=== PATIENT | female | born 1955 | race Caucasian/White ===

== ENCOUNTER 2022-04-25 07:41 | Day surgery (SDC) | payer MEDICARE ==
[~2022-04-25] VITALS: Ht 170.2 cm; Wt 73.8 kg
[~2022-04-25 07:41] MED LIST: AMLO10 PO; CATAPRES-TTS 11 EAC1 TOP; CATAPRES0.1 MG PO; CELE100 PO; CLON.1; ESOM20 PO; LOSARTAN POTAS100 M1 PO; LOSARTAN-HCTZ1 EACH PO
--- NOTE | 2022-04-25 16:44 | NUR ---
PT ARRIVED TO THE ROOM AT 1600. SHE IS DROWSY BUT AWAKE AND ORIENTED. PT REPORT FEELING DIZZY AT THIS TIME AND HR IS 51-55, AWAITING RETURN CALL FROM DR. IBRAHIM. PT'S TEMP IS 96.3, WILL OFFER WARM BLANKET, RESPIRATIONS 10-[address] IBRAHIM AND CONTINUE TO MONITOR.
--- NOTE | 2022-04-25 17:16 | NUR ---
DR. IBRAHIM NOTIFIED OF DECREASED HR, LOW TEMP AND LOW RESP RATE. TELE MONITOR PLACED. PT REPORTS DIZZINESS IS RESOLVING. WILL CONTINUE TO MONITOR.
--- NOTE | 2022-04-25 18:57 | NUR ---
SHIFT SUMMARY PT IS POD#0 FROM [facility] WITH DR. IBRAHIM. PT ARRIVED TO THE ROOM AT APPROXIMATELY 1600. PAIN MANAGED WITH PO PAIN MEDICATION AND TORADOL. PT WAS INITIALLY DIZZY WITH A LOW HR; HR REMAINS LOW BUT PT REPORTS DIZZINESS IS RESOLVING. PT CONTINUES TO HAVE BLE WEAKNESS AND DECREASED SENSATION R/T SPINAL ANESTHESIA; MOVEMENT AND SENSATION ARE IMPROVING. WILL MONITOR UNTIL REPORT TO NOC RN.
--- NOTE | 2022-04-26 04:07 | NUR ---
SHIFT SUMMARY POD1 L [facility]MEN[place] WITH DERMABOND DRESSING, REMAIN CDI NO DRAINAGE NOTED. WB JOCELYNN ON LLE. AMB IN BSC. VOIDING. PT REPORTS MODERATE PAIN, WORSE AFTER AMBULATING. PAIN MANAGED WITH TORADOL, TYLENOL AND OXYCODONE. TOLERATING PO INTAKE. DENIES N/V. DENIES NUMBNESS, TINGLING SENSATION AND DIZZINESS. VSS. PT HAD 1 EPISODE OF HR RUNNING ON 47-49 (RAZ) FOR ABOUT HALF AN HOUR PER TECHNICAL SERVICES REPRESENTATIVE. AOX4. CALL LIGHT WITHIN REACH. WILL CONTINUE TO MONITOR AND WILL PROVIDE REPORT TO ONCOMING NURSE.
[2022-04-26 04:32] LABS: BASOPHILS ABSOLUTE AUTO 0.02 K/mm3 (0.00-0.23); BASOPHILS PERCENT AUTO 0 % (0-2); EOSINOPHILS ABSOLUTE AUTO 0.01 K/mm3 (0.00-0.68); EOSINOPHILS PERCENT AUTO 0 % (0-6); Hematocrit 35.2 % (33.0-51.0); Hemoglobin 12.2 g/dL (11.5-16.0); IMMATURE GRAN ABSOLUTE AUTO 0.04 K/mm3 (0.00-0.10); IMMATURE GRAN PERCENT AUTO 0 % (0-1); LYMPHOCYTES PERCENT AUTO 7 % (21-46); MONOCYTES ABSOLUTE AUTO 0.83 K/mm3 (0.16-1.47); MONOCYTES PERCENT AUTO 8 % (4-13); Mean Corpuscular HGB 30.2 pg (26.0-34.0); Mean Corpuscular HGB Conc 34.7 g/dL (31.5-36.5); Mean Corpuscular Volume 87 fL (80-100); Mean Platelet Volume 11.1 fL (9.1-12.4); NEUTROPHILS ABSOLUTE AUTO 9.14 K/mm3 (1.96-9.15); NEUTROPHILS PERCENT AUTO 84 % (41-73); Platelet Count 230 K/mm3 (150-400); RDW Coefficient Variation 11.3 % (11.7-14.2); RDW Standard Deviation 36.3 fL (35.1-46.3); Red Blood Cell Count 4.04 M/mm3 (3.80-5.20); White Blood Cell Count 10.84 K/mm3 (4.00-11.30)
[2022-04-26 04:58] LABS: Bun/Creatinine Ratio 20.2 (12.0-20.0); Calcium, Blood 9.3 mg/dL (8.5-10.1); Creatinine, Blood 0.64 mg/dL (0.40-1.00); Magnesium, Blood 1.9 mg/dL (1.6-2.4); Potassium, Blood 3.6 mmol/L (3.5-5.5)
--- NOTE | 2022-04-26 08:50 | NUR ---
PATIENT REPORTED NAUSEA WHILE WORKING WITH PHYSICAL THERPAY. MEDICATED WITH ZOFRAN PER EMAR. THERAPY PAUSED AND WILL FINISH THIS AFTERNOON.
[2022-04-26] MEDS ORDERED: ACET500 PO (09:17)
[2022-04-26] MEDS ORDERED: OXYC5 PO (09:18)
--- NOTE | 2022-04-26 14:00 | NUR ---
DISCHARGE PT HAS CLEARED THERAPY. PAIN WELL CONTROLLED PER EMAR. PRENIO DRESSING IN PLACE, C/D/I. EATING, DRINKING, & VOIDING WELL. DISCUSSED DISCHARGE INSTRUCTIONS WITH PATIENT. AQUACEL DRESSINGS, DISCHARGE INSTRUCTIONS, & POLAR PACK SENT WITH PATIENT. ESCORTED OUT VIA W/C.
== END 2022-04-26 14:03 | disposition home or self-care (01) ==
LOC: ORSCMMR 07:41 → ORD 10:30 → SURS 16:00 → ORSCMMR 04-26 14:03
PROVIDERS: Orthopaedic Surgery
PROC: 0SRB0JA Replacement of Left Hip Joint with Synthetic Substitute, Uncemented, Open Approach (ICD-10-PCS; principal; 2022-04-25 12:30)
DX: M16.0 Bilateral primary osteoarthritis of hip (principal); I10 Essential (primary) hypertension; Z79.899 Other long term (current) drug therapy
CPT/HCPCS: 36415; 72170; 80048; 83735; 85025; 97110; 97116; 97161; 97530; A9270; C1776; J0171; J0690; J0735; J1100; J1885; J2250; J2370; J2405; J2704; J2795; J3010; J7120

== ENCOUNTER → 2023-02-07 | Outpatient (CLI) | payer MEDICARE ==
[~2023-02-07] MED LIST changes: +ACET500 PO; +DICLEGIS DR 101 EAC1 PO; +OXYC5 PO
[2023-02-10 08:47] LABS: Stool Occult Bld Immuno 1 Negative (NEGATIVE)
== END | disposition home or self-care (01) ==
LOC: LAB 11:00 → LAB SHORT 11:00
PROVIDERS: Nurse Practitioner Family
DX: Z12.11 Encounter for screening for malignant neoplasm of colon (principal)
CPT/HCPCS: G0328

== ENCOUNTER → 2023-12-18 | Outpatient (CLI) | payer MEDICARE | END | disposition home or self-care (01) | LOC: LAB SHORT 12:56 → LAB 12:56 | DX: N39.0 Urinary tract infection, site not specified (principal) | CPT/HCPCS: 87077; 87086; 87186 ==

== ENCOUNTER → 2024-12-08 | Outpatient (CLI) | payer MEDICARE | END | disposition home or self-care (01) | LOC: PLD 07:44 → LAB SHORT 12-11 07:44 | DX: C44.622 Squamous cell carcinoma of skin of right upper limb, including shoulder (principal) | CPT/HCPCS: 88305 ==

== ENCOUNTER → 2025-05-22 | Outpatient (CLI) | payer MEDICARE, OTHER ==
[2025-05-28 14:49] LABS: Stool Occult Bld Immuno 1 Negative (NEGATIVE)
== END | disposition home or self-care (01) ==
LOC: LAB 12:00 → LAB SHORT 12:00
DX: Z12.11 Encounter for screening for malignant neoplasm of colon (principal)
CPT/HCPCS: G0328